=== PATIENT | male | born 1970 | race Caucasian/White ===

== ENCOUNTER 2016-12-26 21:12 | Inpatient (IN) | payer OTHER ==
--- NOTE | ~2016-12-26 | PA ---
Unit #: [id number] #: [id number] Patient: SHERON LOPEZ [id number] [place] [address] [id number] I MR#: [id number] NAME: SHERON LOPEZ. ROOM: P203 Age: 46 Sex: M Admission Date: 12/26/2016 : 1970 Date of Assessment: 12/27/2016 Attending Physician: Philip Dennis M.D. Admitting Physician: Philip Dennis M.D. Primary Care Physician: Primary Care Physician No PSYCHIATRIC ASSESSMENT IDENTIFYING INFORMATION The patient is a 46-year-old white male admitted to the [address] [place] [address] for alcohol detox. CHIEF COMPLAINT Detox. INFORMANT Patient, reliability is good. HISTORY OF PRESENT ILLNESS The patient is a 46-year-old white male with a long history of alcohol dependence. He reports that over the past several months his alcohol intact is increased to a point where he has now lost his job and has suffered alcohol withdrawal seizures both at [facility] and [facility]. The patient reports no abuse of psychoactive substances apart from alcohol. He denies recent changes in mood, sleep, or appetite. The patient reports that he is drinking several six packs on a daily basis. He denies use of other psychotropic substances. He does report a history of alcohol withdrawal seizure x2, once treated at [facility] and once at [facility]. The patient is presently living with his and [id number]. He denies recent changes in appetite but does complain of chronically poor sleep. He had previously worked in the [employer] business but is presently unemployed secondary to his alcohol use. PAST PSYCHIATRIC HISTORY As above. PAST MEDICAL HISTORY Significant for history of high blood pressure. MEDICATIONS None. ALLERGIES None. FAMILY HISTORY Noncontributory. SOCIAL HISTORY The patient lives with his and [id number]. He is not presently Unit #: [id number] #: [id number] Patient: SHERON LOPEZ employed. He reports substance use as noted previously and is a smoker. MENTAL STATUS EXAMINATION Examination at this time reveals the patient to be a thin disheveled white male appearing significantly older than her stated age of 46 years. He appears to be in moderate physical distress related to alcohol withdrawal. He is awake, alert, and oriented in all spheres. His mood is dysphoric, his affect constricted. Speech is generally well-coherent. There are no gross deficits in memory or cognition noted. Intelligence is judged to be in the average range based on fund of knowledge. The patient is cooperative throughout the interview. He is currently denying suicidal or homicidal ideation or psychotic features. His judgment and insight appear to be intact. ASSETS AND LIABILITIES The patient's assets: Motivation for change. Liabilities: Lack of resources. DIAGNOSTIC IMPRESSION 1. Alcohol use disorder. 2. History of alcohol withdrawal seizure. 3. Hypertension. TREATMENT PLAN The patient remains hospitalized for safety and stabilization in addition to the routine detoxification protocol generally put in place. I will add Neurontin 600 mg 3 times a day in hopes of addressing the patient's risk of seizure. The patient will participate in appropriate order of milieu activities. ESTIMATED LENGTH OF STAY 3 to 5 days. Dictated by... Philip Dennis M.D. YESIKA/darinel TD: 12/27/2016 14:02 JOB #: [id number] PSYCHIATRIC ASSESSMENT Page 1 of 1 X Philip Dennis MD X PSYCHIATRIC ASSESSMENT
--- NOTE | ~2016-12-26 | CO ---
Unit #: [id number] #: [id number] Patient: ABIODUN LOPEZ [id number] [place] [address] [id number] I MR#: [id number] NAME: ABIODUN LOPEZ. ROOM: P203 Age: 46 Sex: M Admission Date: 12/26/2016 : 1970 Attending Physician: Philip Dennis M.D. Consultation Date: 12/27/2016 CONSULTATION REPORT SUBJECTIVE Abiodun is a 46-year-old with history of alcohol abuse. At the time of admission, he gave no prior history of high blood pressure. We have now been asked to see him for his elevated pressures. He is detoxing from alcohol. Pressures have been running 166/110, 154/96, 147/106 with heart rates 89, 81, and 90. Please see admission H and P dated 12/27/2016. ASSESSMENT High blood pressure in a 46-year-old who is detoxing off alcohol. He did not report any history of high blood pressure to medical at the time of his admission, however, he must have given that history to other medical staff. Regardless, he has been noncompliant with any kind of blood pressure medication. We will go ahead and start Norvasc 5 mg one p.o. daily. Continue to monitor blood pressure. He knows he needs to follow up with his PCP upon discharge. Dictated by... Jamaica Price P.A.-C. for Wallace Sanders/kallie TD: 12/29/2016 22:32 JOB #: [id number] CONSULTATION REPORT Page 1 of 1 X Jamaica Price CONSULTATION REPORT
--- NOTE | ~2016-12-26 | PN ---
Unit #: [id number] #: [id number] Patient: SHERON LOPEZ [id number] [facility] [address] [place] [address] [id number] I MR#: [id number] NAME: SHERON LOPEZ ROOM: P203 Age: 46 Sex: M Admission Date: 12/26/2016 : 1970 Attending Physician: Philip Dennis M.D. Admitting Physician: Philip Dennis M.D. Primary Care Physician: Primary Care Physician Annie ESPOSITO PROGRESS NOTES DATE 12/28/2016 DISCUSSION The patient is in much brighter spirits today. His detox appears to be going uneventfully. We will plan to watch for one additional day given the patient's documented history of withdrawal seizure. Dictated by... Philip Dennis M.D. CB/darinel TD: 12/28/2016 13:58 JOB #: [id number] VAIB[facility]AV PROGRESS NOTES Page 1 of 1 X Philip Dennis MD X PROGRESS NOTE
--- NOTE | ~2016-12-26 | DS ---
Unit #: [id number] #: [id number] Patient: SHERON LOPEZ [id number] [place] [address] [id number] I MR#: [id number] NAME: SHERON LOPEZ. ROOM: [facility] Age: 46 Sex: M Admission Date: 12/26/2016 : 1970 Discharge Date: 12/29/2016 Attending Physician: Philip Dennis M.D. DISCHARGE SUMMARY REASON FOR ADMISSION The patient is a 46-year-old white male, admitted for alcohol detox. HOSPITAL COURSE The patient was admitted to the [facility] and placed on routine detoxification protocol for alcohol. Because of his history of seizures, he was also started on Neurontin 600 mg t.i.d. His stay in the hospital was an uneventful one. His detox went smoothly and by 12/29/2016, the patient was in bright spirits and requested discharge and it was so ordered. FINAL DIAGNOSES Alcohol use disorder and hypertension. DISPOSITION ON DISCHARGE The patient is discharged on the following medication, Norvasc 5 mg daily for hypertension. DIET AND ACTIVITY No dietary or physical restrictions were placed on the patient at the time of discharge. FOLLOWUP Followup will take place through the auspices of the chemical dependency intensive outpatient program provided by this facility. PROGNOSIS The patient's prognosis is considered fair. Dictated by... Philip Dennis M.D. CB/kallie TD: 12/29/2016 19:42 JOB #: [id number] Unit #: [id number] #: [id number] Patient: SHERON LOPEZ DISCHARGE SUMMARY Page 1 of 1 X Philip Dennis MD X DISCHARGE SUMMARY
--- NOTE | ~2016-12-26 | HP ---
Unit #: [id number] #: [id number] Patient: ABIODUN LOPEZ [id number] [place] [address] [id number] I MR#: [id number] NAME: ABIODUN LOPEZ. ROOM: P203 Age: 46 Sex: M Admission Date: 12/26/2016 : 1970 Attending Physician: Philip Dennis M.D. Admitting Physician: Philip Dennis M.D. Primary Care Physician: Primary Care Physician No HISTORY AND PHYSICAL HISTORY OF PRESENT ILLNESS Abiodun is a 46 year old admitted to [address] [place] [address] because of his abuse of alcohol. He is detoxing. PAST MEDICAL HISTORY 1. Long history of alcohol abuse. 2. History of withdrawal seizures. PAST SURGICAL HISTORY Cervical disc. ALLERGIES No known drug allergies. SOCIAL HISTORY Smokes greater than 1 pack per day. Drinks at least a case of beer on a daily basis. Denies illicit drug use. FAMILY HISTORY Medically noncontributory. REVIEW OF SYSTEMS CONSTITUTIONAL: No fever or chills. HEENT: Denies any sore throat, ear pain or runny nose. CARDIOVASCULAR: Denies chest pain, irregular heart rhythm or palpitations. CHEST: Denies shortness of breath or cough. No hemoptysis. GASTROINTESTINAL: Denies nausea, vomiting, diarrhea or chronic constipation. ENDOCRINE: Denies history of increased thirst or urination. No recent significant weight loss or gain. GENITOURINARY: Denies dysuria, frequency, or hematuria. SKIN: Denies any rashes. HEMATOLOGIC: Denies history of increased bleeding or bruising. MUSCULOSKELETAL: Denies any hot, swollen joints. No generalized muscle pain. NEUROLOGIC: Denies problems with vision or speech. No frequent, severe headaches. No numbness, tingling or weakness in any extremities. Denies loss of bladder or bowel control. CURRENT MEDICATIONS Detox protocol. PHYSICAL EXAMINATION Unit #: [id number] #: [id number] Patient: ABIODUN LOPEZ GENERAL: Alert, well-nourished, in no apparent distress. VITAL SIGNS: Blood pressure 166/110, heart rate 80, respirations 16, temperature 98.6. WEIGHT: 140. HEIGHT: 5 feet 8 inches. SKIN: Warm and dry without rash or lesion. HEENT: Normocephalic. TMs not viewed. Oral and nasal passages clear. Conjunctivae clear. PERRLA. EOMs intact. NECK: Supple without lymphadenopathy or thyromegaly. HEART: Regular rate and rhythm without murmur. LUNGS: Clear. ABDOMEN: Soft, nontender. : Not done. EXTREMITIES: No evidence of cyanosis, clubbing or edema. Moves all without focal deficit. NEUROLOGICAL: Grossly within normal limits. Cranial Nerves: II: Visual hilton are intact. III, IV AND : Extraocular movements are intact. Pupils are equal, round and reactive to light. V: Facial sensation is grossly normal. VII: Facial movements and expression are normal. VIII: Auditory acuity grossly intact. IX, X: Uvula is midline. Phonation is normal. XI: Patient shrugs shoulders and turns head normally. XII: Tongue protrudes in the midline. Sensory and Motor Function: Sensory and motor sensation is grossly normal. Motor: moves all extremities well. Coordination: Gait is normal. Deep Tendon Reflexes: Intact. IMPRESSION Psychiatric admission. RECOMMENDATIONS PSYCHIATRIC: Per psychiatrist. MEDICAL: See no contraindications to participate in facility's activities. MEDICAL PROGNOSIS Good. MEDICAL CONDITION Stable. Dictated by... Jamaica Price P.A.-C. for Wallace Sanders/yelitza TD: 12/27/2016 18:54 JOB #: [id number] Unit #: [id number] #: [id number] Patient: ABIODUN LOPEZ HISTORY AND PHYSICAL Page 1 of 1 X Jamaica Price HISTORY AND PHYSICAL
[~2016-12-26 21:12] MED LIST: AMOXICILLIN500 M1 PO; AURALGAN EAR DR14 ML OT; CERTAGEN PO; DICLOFENAC PO; FLEXERIL PO; FOLIC ACID1 MG PO; METHADONE PO; THIAMINE HCL100 M2 PO; VICODIN
[2016-12-27 10:04] LABS: THYROID STIMULATING HORMONE 1.87 uIU/ml (0.34-5.60)
[2016-12-27 10:06] LABS: BASOPHIL# 0.1 X10e3 (0-0.3); BASOPHIL% 1.4 % (0-2.5); EOSINOPHIL# 0.1 X10e3 (0-0.7); EOSINOPHIL% 1.4 % (0.0-7.0); HEMATOCRIT 41.5 % (38.0-50.0); LYMPHOCYTE# 1.1 X10e3 (1.0-3.5); LYMPHOCYTE% 28.2 % (17.0-45.0); MEAN CELL VOLUME 103.9 FL (83-96); MEAN CORPUSCULAR HEMOGLOBIN 35.1 PG (28-34); MEAN CORPUSCULAR HGB CONC 33.8 g/dL (30-36); MONOCYTE# 0.6 X10e3 (0-1.0); MONOCYTE% 15.7 % (3.0-12.0); NEUTROPHIL# 2.1 X10e3 (1.5-7.1); NEUTROPHIL% 53.3 % (40-75); PLATELET COUNT 58 X10e3 (140-420); RED BLOOD COUNT 3.99 X10e (3.90-5.60)
[2016-12-27 10:07] LABS: DIFF IND YES
[2016-12-27 10:10] LABS: FREE THYROXIN (T4) 0.72 ng/dL (0.58-1.64)
[2016-12-27 10:21] LABS: ALBUMIN SERUM 4.2 g/dL (3.5-5.0); BILIRUBIN,TOTAL 1.4 mg/dL (0.2-2.0); BUN/CREATININE RATIO 13.33; CALCIUM SERUM 9.2 mg/dL (8.4-10.2); CREATININE SERUM 0.6 mg/dL (0.6-1.4); GLOM FILT RATE Estimated 118.9 mL/min (>60); POTASSIUM 4.2 mmol/L (3.5-5.1); PROTEIN TOTAL SERUM 7.4 g/dL (6.0-8.3)
[2016-12-27 10:33] LABS: PLATELET ESTIMATE DECREASED (NORMAL)
[2016-12-28 12:46] LABS: URINE APPEARANCE CLEAR; URINE BILIRUBIN NEG (NEG); URINE BLOOD NEG (NEG); URINE COLOR DK YELLOW; URINE GLUCOSE 250 MG/DL (NEG); URINE KETONE NEG (NEG); URINE LEUKOCYTE ESTERASE NEG (NEG); URINE NITRATE NEG (NEG); URINE PROTEIN NEG (NEG); URINE SPECIFIC GRAVITY 1.015 (1.003-1.035)
[2016-12-28 13:11] LABS: AMPHETAMINE NEG (NEG); BARBITURATES NEG (NEG); BENZODIAZEPINES POS (NEG); COCAINE NEG (NEG); MARIJUANA NEG (NEG); OPIATES NEG (NEG); TRICYCLIC ANTIDEPRESSANTS NEG (NEG); U METHADONE NEG (NEG)
== END 2016-12-29 13:10 | DRG 897 ==
LOC: P2S 21:12
PROVIDERS: Specialist
PROC: HZ2ZZZZ Detoxification Services for Substance Abuse Treatment (ICD-10-PCS; principal; 2016-12-26)
DX: F10.20 Alcohol dependence, uncomplicated (principal); I10 Essential (primary) hypertension; F17.210 Nicotine dependence, cigarettes, uncomplicated
CPT/HCPCS: 80053; 80307; 81003; 84439; 84443; 85025; 86592

== ENCOUNTER 2017-03-06 16:33 | Emergency (ER) | payer OTHER | END 2017-03-06 18:00 | disposition left against medical advice (07) | LOC: CED 16:33 | DX: F10.129 Alcohol abuse with intoxication, unspecified (principal) | CPT/HCPCS: 99282 ==

== ENCOUNTER 2017-04-19 19:18 | Emergency (ER) | payer OTHER | END 2017-04-19 20:10 | disposition left against medical advice (07) | LOC: CED 19:18 | DX: Z53.21 Procedure and treatment not carried out due to patient leaving prior to being seen by health care provider (principal) ==

== ENCOUNTER 2017-04-19 22:29 | Emergency (ER) | payer OTHER ==
--- NOTE | ~2017-04-19 | EKG ---
PATIENT: SHERON LOPEZ UNIT #: [id number] Ventricular Rate: 95 BPM Atrial Rate: 95 BPM P-R Interval: 156 ms QRS Duration: 88 ms Q-T Interval: 332 ms QTC Calculation(Bezet): 417 ms P [place]: 79 degrees Calculated R [place]: 45 degrees Calculated T [place]: 69 degrees Diagnosis Line: Normal sinus rhythm Diagnosis Line: Normal ECG Diagnosis Line: No previous ECGs available Diagnosis Line: Confirmed by DA MONTGOMERY MD ([id number]) on Diagnosis Line: 04/20/2017 2:01:32 PM INTERPRETING MD: VALENTINA AGUILAR
[2017-04-19 23:45] LABS: ALBUMIN SERUM 4.2 g/dL (3.5-5.0); BILIRUBIN,TOTAL 0.7 mg/dL (0.2-2.0); BUN/CREATININE RATIO 11.42; CALCIUM SERUM 8.3 mg/dL (8.4-10.2); CREATININE SERUM 0.7 mg/dL (0.6-1.4); GLOM FILT RATE Estimated 111.6 mL/min (>60); POTASSIUM 4.1 mmol/L (3.5-5.1); PROTEIN TOTAL SERUM 7.8 g/dL (6.0-8.3)
[2017-04-20 00:40] LABS: AMPHETAMINE NEG (NEG); BARBITURATES NEG (NEG); BENZODIAZEPINES NEG (NEG); COCAINE NEG (NEG); MARIJUANA NEG (NEG); OPIATES POS (NEG); TRICYCLIC ANTIDEPRESSANTS NEG (NEG); U METHADONE NEG (NEG)
== END 2017-04-20 08:06 | disposition short-term general hospital (02) ==
LOC: CED 22:29
PROVIDERS: Emergency Medicine
DX: T40.1X1A Poisoning by heroin, accidental (unintentional), initial encounter (principal); F10.129 Alcohol abuse with intoxication, unspecified; Y90.8 Blood alcohol level of 240 mg/100 ml or more; I10 Essential (primary) hypertension; G40.909 Epilepsy, unspecified, not intractable, without status epilepticus; F17.200 Nicotine dependence, unspecified, uncomplicated; Z98.890 Other specified postprocedural states; Y92.9 Unspecified place or not applicable
CPT/HCPCS: 36415; 80053; 80307; 93005; 99285; G0480

== ENCOUNTER 2017-04-20 04:00 | Inpatient (IN) | payer OTHER ==
[~2017-04-20] VITALS: Ht 182.9 cm; Wt 68.0 kg
--- NOTE | ~2017-04-20 | DS ---
Unit #: [id number] #: [id number] Patient: SHERON LOPEZ [id number] [facility] [address] [place] [address] [id number] I MR#: [id number] NAME: SHERON LOPEZ. ROOM: [facility] Age: 46 Sex: M Admission Date: 04/20/2017 : 1970 Discharge Date: 04/22/2017 Attending Physician: Philip Dennis M.D. Primary Care Physician: Primary Care Physician No DISCHARGE SUMMARY REASON FOR ADMISSION The patient is a 46-year-old white male, admitted to the [facility] unit for alcohol detox. HOSPITAL COURSE The patient was admitted to the [facility] unit and placed on suicide precautions. Routine detoxification protocol for alcohol was initiated. The patient's stay in the hospital was a brief and uneventful one. He did complain of some hallucinations on 04/21/2017 and was briefly started on haloperidol, however, this medication was discontinued as of 04/22/2017. On that date, the patient was in much brighter spirits and exhibited no signs or symptoms of withdrawal or psychosis. Discharge was ordered. FINAL DIAGNOSES Alcohol use disorder; opioid use disorder. DISPOSITION ON DISCHARGE The patient is discharged on no psychotropic or other medications. FOLLOWUP Followup will take place through the auspices of community mental health resources. PROGNOSIS The patient's prognosis considered fair. Dictated by... Philip Dennis M.D. CB/kallie TD: 04/22/2017 15:39 JOB #: [id number] Unit #: [id number] #: [id number] Patient: SHERON LOPEZ DISCHARGE SUMMARY Page 1 of 1 X Philip Dennis MD X DISCHARGE SUMMARY
--- NOTE | ~2017-04-20 | HP ---
Unit #: [id number] #: [id number] Patient: SHERON LOPEZ [id number] [place] [address] [id number] MR#: [id number] NAME: SHERON LOPEZ. ROOM: P186 Age: 46 Sex: M Admission Date: 04/20/2017 : 1970 Attending Physician: Philip Dennis M.D. Admitting Physician: Philip Dennis M.D. Primary Care Physician: Primary Care Physician No HISTORY AND PHYSICAL HISTORY OF PRESENT ILLNESS The patient is a 46-year-old admitted to [facility] on 04/20/2017 to withdrawal from alcohol. PAST MEDICAL HISTORY 1. Alcohol abuse. 2. Withdrawal seizures. 3. Hypertension. PAST SURGICAL HISTORY Cervical disc. SOCIAL HISTORY He is unemployed. He lives with his . He smokes one-half to two packs of cigarettes daily and drinks a case of beer per day. FAMILY MEDICAL HISTORY Noncontributory. ALLERGIES No known drug allergies. CURRENT MEDICATIONS Patient is not on any home medication. REVIEW OF SYSTEMS CONSTITUTIONAL: No fever or chills. HEENT: Denies any sore throat, ear pain or runny nose. CARDIOVASCULAR: Denies chest pain, irregular heart rhythm or palpitations. CHEST: Denies shortness of breath or cough. No hemoptysis. GASTROINTESTINAL: Denies nausea, vomiting, diarrhea or chronic constipation. ENDOCRINE: Denies history of increased thirst or urination. No recent significant weight loss or gain. GENITOURINARY: Denies dysuria, frequency, or hematuria. SKIN: Denies any rashes. HEMATOLOGIC: Denies history of increased bleeding or bruising. MUSCULOSKELETAL: Denies any hot, swollen joints. No generalized muscle pain. NEUROLOGIC: Denies problems with vision or speech. No frequent, severe headaches. No numbness, tingling or weakness in any extremities. Denies loss of bladder or bowel control. Unit #: [id number] #: [id number] Patient: SHERON LOPEZ PHYSICAL EXAM GENERAL: He is awake, alert and oriented in no acute distress. VITAL SIGNS: Temperature 98.9, heart rate 97, respiration 12, blood pressure 159/104. HEIGHT: 6'0". WEIGHT: 150 pounds. SKIN: Warm and dry without rash or lesion. HEENT: Normocephalic. TMs not viewed. Oral and nasal passages clear. Conjunctivae clear. PERRLA. EOMs intact. NECK: Supple without lymphadenopathy or thyromegaly. HEART: Regular rate and rhythm without murmur. LUNGS: Clear. ABDOMEN: Soft, nontender. : Not done. EXTREMITIES: No evidence of cyanosis, clubbing or edema. Moves all without focal deficit. NEUROLOGICAL: Grossly within normal limits. Cranial Nerves: II: Visual hilton are intact. III, IV AND : Extraocular movements are intact. Pupils are equal, round and reactive to light. V: Facial sensation is grossly normal. VII: Facial movements and expression are normal. VIII: Auditory acuity grossly intact. IX, X: Uvula is midline. Phonation is normal. XI: Patient shrugs shoulders and turns head normally. XII: Tongue protrudes in the midline. Sensory and Motor Function: Sensory and motor sensation is grossly normal. Motor: moves all extremities well. IMPRESSION 1. Psychiatric admission. 2. Alcohol abuse. 3. Withdrawal seizures. 4. Hypertension. RECOMMENDATIONS Psychiatric per psychiatrist. MEDICAL: No contraindication to participate in facility activities. MEDICAL PROGNOSIS Good. MEDICAL CONDITION Stable. Dictated by... Mary Ellen Johnson/james TD: 04/22/2017 01:41 JOB #: [id number] Unit #: [id number] #: [id number] Patient: SHERON LOPEZ HISTORY AND PHYSICAL Page 1 of 1 X LIAT TRINH APRN HISTORY AND PHYSICAL
--- NOTE | ~2017-04-20 | PA ---
Unit #: [id number] #: [id number] Patient: SHERON LOPEZ [id number] [place] [address] [id number] MR#: [id number] NAME: SHERON LOPEZ. ROOM: 86 Age: 46 Sex: M Admission Date: 04/20/2017 : 1970 Date of Assessment: 04/20/2017 Attending Physician: Philip Dennis M.D. Admitting Physician: Philip Dennis M.D. Primary Care Physician: Primary Care Physician No PSYCHIATRIC ASSESSMENT IDENTIFYING INFORMATION The patient is a 46-year-old white male with a history of alcohol dependency. He also reports use of heroin yesterday. He is admitted for detox. CHIEF COMPLAINT None given. INFORMANT(S) Patient, reliability is fair. HISTORY OF PRESENT ILLNESS The patient is a 46-year-old white male last admitted to this facility in December of this year. He was readmitted reporting recurrent abuse of alcohol and states that yesterday he had used heroin, but the patient reports a history of withdrawal seizures and was concerned regarding this possibility. The patient reported that in addition to nine 25-ounce Naturalized beers he had snorted 1 point of heroin yesterday. The patient reports no suicidal or homicidal ideation when seen today. He was noted to be quite tremulous during interview today. PAST PSYCHIATRIC HISTORY As above. PAST MEDICAL HISTORY Noncontributory. MEDICATIONS None. ALLERGIES None. FAMILY HISTORY Noncontributory. SOCIAL HISTORY The patient is currently unemployed. He lives with his who is "fed up with his drinking." MENTAL STATUS EXAMINATION Examination at this time reveals the patient to be a somewhat disheveled white male appearing older than her stated age of 46 years. He is notably tremulous during interview and appears to be in moderate physical distress Unit #: [id number] #: [id number] Patient: SHERON LOPEZ related to alcohol withdrawal. He is awake, alert, and oriented in all spheres. His mood is mildly dysphoric, his affect is constricted. Speech is generally well-coherent. There are no gross deficits in memory or cognition noted. Intelligence is judged to be in the average range based on fund of knowledge. The patient is cooperative throughout the interview. He is currently denying suicidal or homicidal ideation of psychotic features. Judgment and insight appear to be intact. ASSETS AND LIABILITIES The patient's assets: Motivation for change. Liabilities: Lack of resources. DIAGNOSTIC IMPRESSION 1. Alcohol use disorder. 2. Opioid use disorder. TREATMENT PLAN The patient remains hospitalized for safety and stabilization. No routine detoxification protocol for alcohol will be initiated. The patient will participate in the appropriate order of milieu activities. ESTIMATED LENGTH OF STAY 5 to 7 days. Dictated by... Philip Dennis M.D. Alice TD: 04/20/2017 14:20 JOB #: [id number] PSYCHIATRIC ASSESSMENT Page 1 of 1 X Philip Dennis MD X PSYCHIATRIC ASSESSMENT
--- NOTE | ~2017-04-20 | PN ---
Unit #: [id number] #: [id number] Patient: SHERON LOPEZ [id number] [facility] [address] [place] [address] [id number] I MR#: [id number] NAME: SHERON LOPEZ ROOM: P186 Age: 46 Sex: M Admission Date: 04/20/2017 : 1970 Attending Physician: Philip Dennis M.D. Admitting Physician: Philip Dennis M.D. Primary Care Physician: Primary Care Physician Annie ESPOSITO PROGRESS NOTES DATE 04/21/2017 DISCUSSION The patient is now actively hallucinating and is probably in DTs. I will add Haldol 2 mg three times daily to his detox protocol and one to one precautions may become necessary. Dictated by... Philip Dennis M.D. CB/james TD: 04/21/2017 23:54 JOB #: [id number] [facility] PROGRESS NOTES Page 1 of 1 X Philip Dennis MD PROGRESS NOTE
[2017-04-21 14:06] LABS: URINE APPEARANCE CLEAR; URINE BILIRUBIN NEG (NEG); URINE BLOOD NEG (NEG); URINE COLOR DK YELLOW; URINE GLUCOSE NEG (NEG); URINE KETONE TRACE (NEG); URINE LEUKOCYTE ESTERASE NEG (NEG); URINE NITRATE NEG (NEG); URINE PH 7.5 (5-8); URINE PROTEIN TRACE (NEG); URINE SPECIFIC GRAVITY 1.018 (1.003-1.035)
[2017-04-21 14:12] LABS: BASOPHIL% 0.3 % (0-2.5); EOSINOPHIL% 0.6 % (0.0-7.0); HEMATOCRIT 42.4 % (38.0-50.0); HEMOGLOBIN 14.3 gm/dL (13.0-16.0); LYMPHOCYTE% 23.9 % (17.0-45.0); MEAN CELL VOLUME 99.4 FL (83-96); MEAN CORPUSCULAR HEMOGLOBIN 33.4 PG (28-34); MEAN CORPUSCULAR HGB CONC 33.6 g/dL (30-36); MEAN PLATELET VOLUME 9.2 FL (6.5-11.5); MONOCYTE# 0.5 X10e3 (0-1.0); MONOCYTE% 10.9 % (3.0-12.0); NEUTROPHIL# 2.8 X10e3 (1.5-7.1); NEUTROPHIL% 64.3 % (40-75); RED BLOOD COUNT 4.27 X10e (3.90-5.60); WHITE BLOOD COUNT 4.3 X10e3 (4.0-10.5)
[2017-04-21 14:15] LABS: DIFF IND YES; PLATELET COUNT 58 X10e3 (140-420)
[2017-04-21 15:27] LABS: ANISOCYTOSIS SL; PLATELET ESTIMATE DECREASED (NORMAL)
== END 2017-04-22 15:30 | DRG 897 ==
LOC: P1E 08:55
PROVIDERS: Specialist
PROC: HZ2ZZZZ Detoxification Services for Substance Abuse Treatment (ICD-10-PCS; principal; 2017-04-20)
DX: F10.239 Alcohol dependence with withdrawal, unspecified (principal); F11.10 Opioid abuse, uncomplicated; G40.89 Other seizures; I10 Essential (primary) hypertension
CPT/HCPCS: 81003; 85025; 86592